=== PATIENT | female | born 1960 | race Caucasian/White ===

== ENCOUNTER → 2017-09-20 | Day surgery (SDC) | payer BC, OTHER ==
--- NOTE | 2017-09-22 12:44 | PATH ---
Surgical Pathology Report Patient Name: TAHMINA DAY [facility]. Rec. #: [id number] /Age/Gender: 1960 (Age: 57) / F Account: [id number] Location: RADIOLOGY [facility] Taken: 09/20/2017 Received: 09/20/2017 Reported: 09/22/2017 Physicians: Chaz Dumont M.D. Charito Giron M.D. Specimen(s) Received RIGHT BREAST 12:30 CORE BX Clinical History Nonpalpable lesion Mammographic & ultrasound findings: Suspicious 0.8 cm mass with Ca++ Final Diagnosis Breast, right, 12:30, US-guided core biopsy: Invasive lobular carcinoma, with trabecular and classical features (nuclear grade 2), measuring at least 3 mm in greatest dimension IN THIS material. (See note) Lobular carcinoma in situ (LCIS), classical type. Note: Immunohistochemical studies performed at [facility] show the following results: the carcinoma is negative for E-Cadherin, which supports lobular phenotype. SMM-hc & p63 (myoepithelial immunohistochemical markers) are negative in the carcinoma, which supports the diagnosis. Findings discussed with Dr. Giron on 09/22/17. Results of ER and MA studies performed at [facility] are as follows: ER (clone [id number] mouse monoclonal antibody by Leica): > 95 % nuclear staining with strong intensity (Positive). MA (clone16 mouse monoclonal antibody by Leica): ~80 % nuclear staining with strong intensity (Positive). Results of Her2 & Ki67 studies will be reported separately in an addendum. Positive and negative controls (internal if applicable) show appropriate results. Formalin fixation and cold ischemic times are within current ASCO/CAP recommendations for ER, MA and Her2 testing. Electronically Signed Melanie Carter M.D. Addendum Reported: 09/23/2017 Addendum Diagnosis Results of Her2 (IHC) & Ki-67 studies performed at [place], [place] ([id number]) are as follows: Her2 IHC (EP3 from [employer], formerly known as [id number], using [employer]rich Polymer Refine detection kit):2+ (Equivocal). Ki-67: ~20% (Intermediate proliferative index). Her2 FISH studies are being performed and the results will be reported in an additional addendum. Positive and negative controls (internal if applicable) show appropriate results. Melanie Carter M.D. Addendum Reported: 09/29/2017 Addendum Diagnosis Results of Her2 FISH studies performed at [place], [place] ([id number]) are as follows: Her2: 3.8 CEP17: 2.5 Ratio: 1.5 Interpretation: Negative. Melanie Carter M.D. Gross Description Received in formalin labeled "right 12:30," are 6 jackson-yellow, cylindrical portions of fibroadipose tissue ranging from 0.3-2.0 cm in length and averaging 0.1 cm in diameter. The specimens are submitted in toto in one cassette. Time to formalin fixation: < 1minute Total formalin fixation time: Approximately 6 hours. 09/20/201709/20/2017
== END | disposition home or self-care (01) ==
LOC: JRADUS-SUR 10:16
PROVIDERS: ATTEND Surgery Surgical Oncology
PROC: 0HBT3ZX Excision of Right Breast, Percutaneous Approach, Diagnostic (ICD-10-PCS; principal; 2017-09-20)
DX: C50.911 Malignant neoplasm of unspecified site of right female breast (principal)
CPT/HCPCS: 19083; 77065-TC; 87899; 88305-TC; 88341-TC; 88342-TC; A4648

== ENCOUNTER 2017-10-26 09:22 | Day surgery (SDC) | payer BC, OTHER ==
--- NOTE | 2017-10-21 14:36 | HP ---
Admitting History and Physical - Primary Care Physician PCP: Chaz Dumont - Admission Chief Complaint: Right breast cancer History of Present Illness: 57 year old postmenapausal female with strong family H/O breast cancer who underwent screening mammogram 08/17/2017 showing cluster calcifications right breast 12:00 region and density [id number] on US. . US core bx 09/2107 right 12:30 showed invasive lobular carcinoma ER +MT+,HER2 neg by FISH. Breast MRI 09/2017 localized right breast cancer. 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) - Past Surgical History Past Surgical History: Yes: - Smoking History Smoking history: Former smoker Have you smoked in the past 12 months: No - Alcohol/Substance Use Hx Alcohol Use: Yes (social) Home Medications - Allergies Allergies/Adverse Reactions: Allergies Allergy/AdvReac Type Severity Reaction Status Date / Time Penicillins Allergy Verified 10/07/17 11:35 Family Disease History - Family Disease History Family Disease History: CA: Grandparent (mat GM breast ca 65//pat GF prostate ca 72), Mother (breast ca 42 now 79) Physical Examination Constitutional: Yes: Well Nourished, No Distress Breast(s): Yes: Other (C ptotic cups bilaterally no palpable masses or adenopathy bilaterally post bx chages right breast.) Problem List - Problems (1) Breast cancer, right breast Code(s): C50.911 - MALIGNANT NEOPLASM OF UNSP SITE OF RIGHT FEMALE BREAST Qualifiers: Breast location: overlapping sites of breast Patient sex: female Assessment/Plan Right breast wide excision , mammogram needle localization ,lymphoscintogram, sentenel node biopsy , possible axillary node dissection
[2017-10-25 09:07] VITALS: BMI 32.1
[2017-10-26] MEDS ORDERED: ISOSULFAN BLUE 10 MG/ML VIAL SQ ONE (12:49)
[2017-10-26] MEDS ORDERED: KETOROLAC TROMETHAMINE 30 MG/1 ML VIAL IVPUSH PRN (13:12)
[2017-10-26] MEDS ORDERED: ONDANSETRON 4 MG/2 ML VIAL IVPUSH PRN ×2 (13:12→13:49)
[2017-10-26] MEDS ORDERED: DEXTROSE 5%-0.45% SALINE 1,000 ML IV SCH (13:15)
[2017-10-26] MEDS ORDERED: PROMETHAZINE HCL 25 MG/1 ML VIAL IVPB PRN (13:49)
[2017-10-26] MEDS ORDERED: oxyCODONE HCL 5 MG TABLET PO PRN (13:49)
[2017-10-26] MEDS ORDERED: LACTATED RINGERS SOLUTION 1,000 ML IV SCH (14:00)
[2017-10-26] MEDS ORDERED: BENZOIN/ALOE VERA/STORAX/TOLU 58 ML BOTTLE ONE (14:24)
[2017-10-26] MEDS ORDERED: ONDANSETRON 4 MG/2 ML VIAL ONE (15:38)
[2017-10-26 17:27] VITALS: TEMP 98
[2017-10-26 18:43] VITALS: BP 133/78; PULSE 69
--- NOTE | 2017-10-26 21:10 | OP ---
DATE OF OPERATION: 10/26/2017 PREOPERATIVE DIAGNOSIS: Right breast cancer, overlapping regions. POSTOPERATIVE DIAGNOSIS: Right breast cancer, overlapping regions. PROCEDURE: Right breast partial mastectomy with mammographic needle localization and right axillary sentinel lymph node biopsy. ANESTHESIA: General laryngeal mask airway anesthesia. PRIMARY SURGEON: Brandon Dumont MD [employer]IC CONTROL SPECIALIST: LULY Whitfield COMPLICATIONS: There were no complications. Briefly, the patient is a 57-year-old postmenopausal white female of [place] descent, with a family history with her mother and maternal grandmother who had breast cancer. The patient was found to have calcifications in the right breast 12 o'clock region. An ultrasound showed a 6 x 8 x 5 mm density in this region. An ultrasound-guided core biopsy showed an infiltrating lobular cancer which was ER/MD positive, HER-2/erica negative, with a Ki-67 of 20%. She underwent genetic testing through [facility], which was negative. MRI showed localized disease. She was advised on undergoing a right breast partial mastectomy with needle localization and sentinel lymph node biopsy. She was brought in for the procedure on October 26, 2017. She underwent a needle localization and lymph node scintigraphy with Nuclear Medicine and was brought to the holding area at [facility]. Site verification was made and informed consent was obtained. She was brought in to the operating room and laid on the OR table in a supine position. Venodynes were placed on the lower extremities. She received 600 mg of clindamycin prior to incision due to a PENICILLIN allergy. She underwent general laryngeal mask airway anesthesia. Then 3 mL of Lymphazurin blue were injected intradermally and peritumorally around the needle localization site around the 12 o'clock region of the right breast. Massage was instituted. An incision was made just below the hair-bearing area of the right axilla and dissection was undertaken and 2 hot nodes were easily found in the level 1 and level 2 region of the right axilla. The first sentinel lymph node had a 10-second gamma count of 26,127, and the second sentinel lymph node had a 10-second gamma count of 2281. Background count after removal of these 2 nodes was 184. At this point, hemostasis was achieved and the axillary wound was closed using interrupted 2-0 plain suture. The skin was closed using interrupted 3-0 deep dermal Vicryl suture and a running 4-0 subcuticular Biosyn suture. At this point, the wide excision was undertaken around the 12 o'clock region of the right breast. A periareolar incision was made around the 12 o'clock nipple-areolar complex and dissection was undertaken around the needle localization site. Wide excision was undertaken around the needle localization, with the specimen radiographs showing the clip in the middle of the specimen. Hemostasis was achieved. Separate margins were then taken on the superior, inferior, medial, lateral, deep, and anterior aspects, with a suture marking the biopsy cavity side. A separate furthest medial margin was taken, since this was the side the clip was closest to. Hemostasis was achieved. The wound was closed using a 4 x 3 cm tissue transfer closure by undermining the breast tissue, bringing it into the wound. The breast tissue was reapproximated using 2-0 plain suture. The skin was closed using interrupted 3-0 deep dermal Vicryl suture and a running 4-0 subcuticular Biosyn suture. Mastisol and Steri-Strips were applied over the wound and we did inject about 10 mL of 0.25% Marcaine in the wide excision and axillary wounds for postoperative pain control. Sterile dressing was applied over the wound and she was placed in a surgical bra. The patient had the laryngeal mask airway tube removed at the end of the case, will be recovered in the post-anesthesia care unit. She will be able to be discharged home the same day once discharge criteria are met. She is to follow up in the office in 1 week for formal wound pathology check. All sponge and needle counts were correct at the end of the case, and estimated blood loss was about 20 mL. BRANDON DUMONT M.D. JEAN [id number]
--- NOTE | 2017-11-03 10:54 | PATH ---
Surgical Pathology Report Patient Name: TAHMINA DAY [facility]. Rec. #: [id number] /Age/Gender: 1960 (Age: 57) / F Account: [id number] Location: AMBULATORY SURG Taken: 10/26/2017 Received: 10/26/2017 Reported: 11/03/2017 Physicians: Chaz Dumont M.D. Specimen(s) Received A: RIGHT BREAST MASS B: SENTINEL LYMPH NODE C: SENTINEL LYMPH NODE D: MEDIAL BREAST MARGIN E: INFERIOR BREAST MARGIN F: LATERAL BREAST MARGIN G: SUPERIOR BREAST MARGIN H: DEEP BREAST MARGIN I: ANTERIOR BREAST MARGIN J: FURTHEST MEDIAL BREAST MARGIN Clinical History Right breast cancer Final Diagnosis A. RIGHT BREAST MASS, PARTIAL MASTECTOMY: INVASIVE LOBULAR CARCINOMA, MULTIFOCAL, CLASSICAL TYPE, MODERATELY DIFFERENTIATED (TUBULE SCORE: 3/3, NUCLEAR GRADE: 2/3, MITOTIC SCORE: 1/3; TOTAL SCORE 6/9, MAO GRADE 2). THE LARGEST INVASIVE CARCINOMA MEASURES 7MM IN GREATEST DIMENSION, MICROSCOPICALLY. SURGICAL MARGINS ARE UNINVOLVED BY INVASIVE CARCINOMA. THE INVASIVE CARCINOMA TO CLOSEST MARGIN (LATERAL) MEASURES 2 MM. SEE SPECIMENS D TO J FOR FINAL MARGINS. LOBULAR CARCINOMA IN SITU PRESENT. 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 THE DCIS TO THE CLOSEST MARGIN (DEEP MARGIN) MEASURES 5 MM. NO LYMPHOVASCULAR INVASION IS IDENTIFIED PRIOR BIOPSY SITE CHANGES ARE PRESENT. PATHOLOGIC STAGE (pTNM, AJCC 8th Edition): pT1b, pN0 ALSO SEE BREAST INVASIVE CARCINOMA CASE SUMMARY BELOW. B. SENTINEL LYMPH NODE, EXCISION: ONE LYMPH NODE, NEGATIVE FOR METASTATIC CARCINOMA (0/1). C. SENTINEL LYMPH NODE, EXCISION: ONE LYMPH NODE, NEGATIVE FOR METASTATIC CARCINOMA (0/1). D. MEDIAL BREAST MARGIN, EXCISION: BENIGN BREAST TISSUE. E. INFERIOR BREAST MARGIN, EXCISION: BENIGN BREAST TISSUE. F. LATERAL BREAST MARGIN, EXCISION: BENIGN BREAST TISSUE. G. SUPERIOR BREAST MARGIN, EXCISION: LOBULAR CARCINOMA IN SITU, CLASSICAL TYPE. H. DEEP BREAST MARGIN, EXCISION: BENIGN BREAST TISSUE. I. ANTERIOR BREAST MARGIN, EXCISION: LOBULAR CARCINOMA IN SITU, CLASSICAL TYPE. J. FURTHEST MEDIAL BREAST MARGIN, EXCISION: BREAST TISSUE, NEGATIVE FOR CARCINOMA. Comment: Immunohistochemical stain AE1/AE3 performed and interpreted at [facility] on block B1 and C1 are negative for metastatic carcinoma. Immunohistochemical stains performed and interpreted at [facility] on block "I2"show the following results: smooth muscle myosin heavy chain and p63 show preserved myoepithelial cell layer in the areas of LCIS. E-Cadherin immunoreactivity is absent in the LCIS cells. Immunohistochemical stain E-Cadherin performed and interpreted at [facility] on block "A3" highlighted the tumor cells in the focus of DCIS bot not in the adjacent LCIS. Positive and negative controls (internal if applicable) show appropriate results. Comments Breast Invasive Carcinoma: Surgical Pathology Case Summary (Based on AJCC TNM 8 th edition) Procedure _x_ Excision (less than total mastectomy) Specimen Laterality _x_ Right Tumor Size Greatest dimension of largest invasive focus >1 mm (specify exact measurement) (millimeters): 7mm Histologic Type _x_ Invasive lobular carcinoma Histologic Grade (Newton Histologic Score) Glandular (Acinar)/Tubular Differentiation _x_ Score 3 (<10% of tumor area forming glandular/tubular structures) Nuclear Pleomorphism _x_ Score 2 Mitotic Rate _x_ Score 1 Overall Grade _x_ Grade 2 (scores of 6 or 7) Tumor Focality _x_ multiple foci of invasive carcinoma Number of foci: 5 Sizes of individual foci: 7mm, 2mm, 1mm, <1mm, <1mm Ductal Carcinoma In Situ (DCIS) _x_ DCIS is present in specimen Margins Invasive Carcinoma Margins _x_ Uninvolved by invasive carcinoma Distance from closest margin (millimeters): 2mm Closest margin: lateral margin, also see specimen F for additional margin. DCIS Margins _x_ Uninvolved by DCIS Distance from closest margin (millimeters): 5mm Closest margin: deep margin, also see specimen H for additional margin. Regional Lymph Nodes Number of Lymph Nodes with Macrometastases (>2 mm): 0 Number of Lymph Nodes with Micrometastases (>0.2 mm to 2 mm and/or >200 cells): 0 Number of Lymph Nodes with Isolated Tumor Cells (=0.2 mm and =200 cells): 0 Number of Lymph Nodes Examined: 2 Number of Fred Nodes Examined : 2 Treatment Effect _x_ No known presurgical therapy Lymphovascular Invasion _x_ Not identified Pathologic Stage Classification (pTNM, AJCC 8th Edition) TNM Descriptors _x_ m (multiple foci of invasive carcinoma) Primary Tumor (Invasive Carcinoma) (pT) pT1b: Tumor >5 mm but =10 mm in greatest dimension Regional Lymph Nodes (pN) Modifier (required only if applicable) _x_ (sn): Fred node(s) evaluated. Category (pN) _x_ pN0: No regional lymph node metastasis identified or ITCs only Biomarker Studies Results of ER and AZ studies performed on prior biopsy ([id number]) at [facility] are as follows: ER (clone [id number] mouse monoclonal antibody by [employer]): >95 % nuclear staining with strong intensity (Positive). AZ (clone16 mouse monoclonal antibody by [employer]): ~80% % nuclear staining with strong intensity (Positive). Results of Her2 (IHC) & Ki-67 studies performed on prior biopsy ([id number]) at [place], [place] ([id number]) interpreted as at [facility] are as follows: Her2 IHC (EP3 from [employer], formerly known as [id number], using [employer] Polymer Refine detection kit): 2+ (Equivocal) Ki67: ~20% (intermediate proliferative index) Positive and negative controls (internal if applicable) show appropriate results. Formalin fixation and cold ischemic times are within current ASCO/CAP recommendations for ER, AZ and Her2 testing. Electronically Signed Ja Stephen M.D. Gross Description A. Received fresh on an AccuGrid, labeled with the patient's name and indicated on the requisition to be a right breast partial mastectomy, is a 16.0 x 5.2 x 2.5 cm. jackson-yellow, irregular, portion of fibroadipose tissue with a needle localization wire present. There is a short suture marking the superior aspect and a long suture marking the lateral aspect, per the surgeon. There is no skin or nipple present. The specimen is inked as follows: superior and lateral blue; inferior green; medial yellow; anterior red; deep black. The specimen is serially sectioned from superior to inferior. Sectioning reveals a 1.1 x 1.0 x 1.0 cm jackson, indurated mass abutting the anterior margin. The mass is 0.1 cm from the lateral margin, 0.5 cm from the superior margin and 1.0 cm from the medial margin. The remaining breast parenchyma displays foci of dense white fibrous tissue. Aer[employer] sections are submitted in 13 cassettes as follows: 1-2-one full face section of mass each (each with anterior and lateral margins); 3-additional mass with anterior and lateral margins; 1-7-cnhmskpjbr uninvolved fibrous tissue with lateral margin (sequentially submitted from superior to inferior); 9-10-medial margin; 11-superior margin; 12-inferior margin; 13-deep margin. Total formalin fixation time: Approximately 28 hours B. Received in formalin labeled "sentinel lymph node #1," is a 0.9 x 0.5 x 0.5 cm jackson lymph node. The specimen is bisected and entirely submitted in one cassette. C. Received in formalin labeled "sentinel lymph node #2," is a 0.9 x 0.5 x 0.5 cm jackson lymph node with attached fat. The specimen is bisected and entirely submitted in one cassette. D. Received in formalin labeled "medial margin," is a 3.0 x 2.0 x 0.9 cm portion of fibroadipose tissue with a suture marking the biopsy cavity side, per the surgeon. The new margin is inked black and the specimen is serially sectioned. The specimen is entirely and sequentially submitted in 3 cassettes. E. Received in formalin labeled "inferior margin," is a 3.4 x 2.3 x 0.8 cm portion of fibroadipose tissue with a suture marking the biopsy cavity side, per the surgeon. The new margin is inked black and the specimen is serially sectioned. The specimen is entirely and sequentially submitted in 3 cassettes. F. Received in formalin labeled "lateral margin," is a 3.2 x 2.3 x 1.4 cm portion of fibroadipose tissue with a suture marking the biopsy cavity side, per the surgeon. The new margin is inked black and the specimen is serially sectioned. The specimen is entirely and sequentially submitted in 4 cassettes. G. Received in formalin labeled "superior margin," is a 3.0 x 2.0 x 1.0 cm portion of fibroadipose tissue with a suture marking the biopsy cavity side, per the surgeon. The new margin is inked black and the specimen is serially sectioned. The specimen is entirely and sequentially submitted in 3 cassettes. H. Received in formalin labeled "deep margin," is a 3.1 x 1.9 x 0.9 cm portion of fibroadipose tissue with a suture marking the biopsy cavity side, per the surgeon. The new margin is inked black and the specimen is serially sectioned. The specimen is entirely and sequentially submitted in 3 cassettes. I. Received in formalin labeled "anterior margin," is a 2.5 x 2.0 x 0.5 cm portion of fibroadipose tissue with a suture marking the biopsy cavity side, per the surgeon. The new margin is inked black and the specimen is serially sectioned. The specimen is entirely submitted in 2 cassettes. J. Received in formalin labeled "furthest to medial margin," is a 2.0 x 1.8 x 0.6 cm portion of fibroadipose with a suture marking the biopsy cavity side, the surgeon as the new margin is inked black and the specimen is serially sectioned. The specimen is entirely submitted in 2 cassettes. 10/27/[address] [facility]10/27/2017
== END 2017-10-26 18:30 | disposition home or self-care (01) ==
LOC: JASUSAT 09:22
PROVIDERS: ATTEND Surgery Surgical Oncology
PROC: 0HBT0ZZ Excision of Right Breast, Open Approach (ICD-10-PCS; principal; 2017-10-26 13:00)
PROC: 07B50ZX Excision of Right Axillary Lymphatic, Open Approach, Diagnostic (ICD-10-PCS; 2017-10-26 13:00)
DX: C50.911 Malignant neoplasm of unspecified site of right female breast (principal)
CPT/HCPCS: 19281; 78195-TC; 88307-TC; 88341-TC; 88342-TC; 94760; A9541